=== PATIENT | female | born 1945 | race Caucasian/White ===

== ENCOUNTER 2019-07-17 09:29 | Outpatient (CLI) | payer OTHER ==
[~2019-07-17 09:29] MED LIST: MONOPRIL20 MG PO
== END 2019-07-17 09:35 | disposition home or self-care (01) ==
LOC: SONOGRAMA 09:29
PROVIDERS: ATTEND Pathology Anatomic Pathology & Clinical Pathology
DX: E04.1 Nontoxic single thyroid nodule (principal)